=== PATIENT | male | born 1960 | race Hispanic/Latino ===

== ENCOUNTER 2025-07-23 09:55 | Day surgery (SDC) | payer OTHER ==
[~2025-07-23] VITALS: Ht 170.2 cm; Wt 57.6 kg
[2025-07-23] VITALS (13 sets, daily range): BP systolic 93–107; BP diastolic 52–67; PULSE 75–91; RESP 15–18; TEMP 97.4–98.1
[~2025-07-23 09:55] MED LIST: APIX5TAB PO; DEXA4TAB PO; FOLI0.8C PO; METH2.5T6 PO; ONDA-245 PO; [UNRECOGNIZED DRUG - OTHER] PO
[2025-07-23] MEDS ORDERED: NEOSTIGMINE METHYLSULFATE 1MG/ML IV ONE (10:45)
[2025-07-23] MEDS ORDERED: SUCCINYLCHOLINE CHLORIDE 20 MG/ML 10 ML VIAL ONE (10:45)
[2025-07-23] MEDS ORDERED: LIDOCAINE PF 100MG/5ML (2%) SYRINGE 5ML ONE (10:45)
[2025-07-23] MEDS ORDERED: GLYCOPYRROLATE 0.2 MG/ML 5 ML VIAL ONE (10:45)
[2025-07-23] MEDS ORDERED: MIDAZOLAM HCL 1 MG/ML 2ML VIAL ONE (10:56)
[2025-07-23] MEDS ORDERED: FAMOTIDINE 20MG VIAL IV ONE (11:06)
[2025-07-23] MEDS ORDERED: SUGAMMADEX SODIUM 200 MG/2 ML VIAL IV ONE (11:06)
[2025-07-23] MEDS: 0.9%NACL 1000ML 1,000 ML IV ONE (11:47)
--- NOTE | 2025-07-24 11:11 | HMCIMG ---
INDICATION: Intraoperative imaging COMPARISON: None. IMAGES OBTAINED: 6 TECH TIME: Not provided FLUOROSCOPY TIME: 0.08 minute FINDINGS/IMPRESSION: Intraoperative fluoroscopic images are submitted during patient undergoing removal of gastroesophageal stent. Please see operative note for full description.
== END 2025-07-23 15:15 | disposition home or self-care (01) ==
LOC: DAH 09:55
PROVIDERS: ATTEND Internal Medicine
DX: R13.10 Dysphagia, unspecified (principal); K22.2 Esophageal obstruction; B37.81 Candidal esophagitis; K22.89 Other specified disease of esophagus; K22.11 Ulcer of esophagus with bleeding; R93.3 Abnormal findings on diagnostic imaging of other parts of digestive tract; C16.9 Malignant neoplasm of stomach, unspecified; M19.90 Unspecified osteoarthritis, unspecified site; Z79.01 Long term (current) use of anticoagulants; Z87.442 Personal history of urinary calculi; Z88.8 Allergy status to other drugs, medicaments and biological substances; Z79.899 Other long term (current) drug therapy
CPT/HCPCS: 43249; 43239; 43247; J1308; J3010; J1100; J0330; J7030; J3490 ×3; J2003; J2250; J2704; J2405; J2710; C1726; A4215 ×2; A4223; A4657 ×3; A7002; A4222; A4221; A4663; A4606; 76000